=== PATIENT | female | born 1995 | race Caucasian/White ===

== ENCOUNTER 2018-01-19 15:38 | Emergency (ER) | payer OTHER ==
[~2018-01-19] VITALS: Ht 160 cm; Wt 59.1 kg
[2018-01-19] MEDS ORDERED: ChlordiazePOXIDE HCL 25 MG CAPSULE PO ONE (16:45)
[2018-01-19 17:01] LABS: AMPHET/METH SCREEN,URINE NEGATIVE (NEGATIVE); BARBITURATE SCREEN, URINE NEGATIVE (NEGATIVE); BENZODIAZEPINES SCREEN,URINE POSITIVE (NEGATIVE); CANNABINOID SCREEN,URINE NEGATIVE (NEGATIVE); COCAINE SCREEN,URINE NEGATIVE (NEGATIVE); METHADONE SCREEN, URINE NEGATIVE (NEGATIVE); OPIATE SCREEN,URINE NEGATIVE (NEGATIVE); PHENCYCLIDINE SCREEN,URINE NEGATIVE (NEGATIVE)
[2018-01-19 18:13] VITALS: BP 116/71
== END 2018-01-19 18:14 | disposition home or self-care (01) ==
LOC: EMS 15:42
DX: F10.239 Alcohol dependence with withdrawal, unspecified (principal)
CPT/HCPCS: 99283

== ENCOUNTER 2021-08-08 15:01 | Emergency (ER) | payer OTHER ==
[~2021-08-08] VITALS: Ht 160 cm; Wt 59.1 kg
[2021-08-08 15:07] VITALS: BP 103/68
[2021-08-08 16:12] LABS: COVID AG,FIA SOURCE NASOPHARYNGEAL
== END 2021-08-08 18:00 | disposition home or self-care (01) ==
LOC: EMS 15:05
DX: J06.9 Acute upper respiratory infection, unspecified (principal); F17.210 Nicotine dependence, cigarettes, uncomplicated; Z20.822 Contact with and (suspected) exposure to COVID-19
CPT/HCPCS: 87426; 99283; U0003

== ENCOUNTER 2021-10-10 17:14 | Emergency (ER) | payer OTHER ==
[~2021-10-10] VITALS: Ht 160 cm; Wt 61.4 kg
[2021-10-10 18:07] VITALS: BP 113/66
[2021-10-10 18:42] LABS: COVID AG,FIA SOURCE NASOPHARYNGEAL
[2021-10-10 19:31] LABS: INFLUENZA TYPE A NEGATIVE FOR TYPE A (NEGATIVE); INFLUENZA TYPE B NEGATIVE FOR TYPE B (NEGATIVE)
== END 2021-10-10 20:14 | disposition home or self-care (01) ==
LOC: EMS 17:50
DX: J06.9 Acute upper respiratory infection, unspecified (principal); Z20.822 Contact with and (suspected) exposure to COVID-19
CPT/HCPCS: 87804; 99283

== ENCOUNTER 2022-11-19 18:23 | Emergency (ER) | payer OTHER ==
[~2022-11-19] VITALS: Ht 160 cm; Wt 70.5 kg
[2022-11-19 19:58] LABS: BASOPHILS % (AUTO) 0.6 % (0.0-2.0); EOSINOPHILS % (AUTO) 0.3 % (1.0-6.0); HEMATOCRIT 38.7 % (36-46); HEMOGLOBIN 12.9 g/dL (12.0-16.0); LYMPHOCYTES # (AUTO) 1.7 K/uL (1.0-4.8); LYMPHOCYTES % (AUTO) 30.8 % (22.0-44.0); MEAN CORPUSCULAR HEMOGLOBIN 29.8 pg (26.0-34.0); MEAN CORPUSCULAR HGB CONC 33.3 G/dL (31.0-37.0); MEAN CORPUSCULAR VOLUME 90 fL (80-100); MONOCYTES # (AUTO) 0.3 K/uL (0.1-1.0); MONOCYTES % (AUTO) 5.7 % (2.0-9.0); NEUTROPHILS # (AUTO) 3.5 K/uL (1.8-7.7); NEUTROPHILS % (AUTO) 62.6 % (40.0-70.0); PLATELET COUNT (AUTO) 433 K/uL (150-450); RED BLOOD CELL COUNT(AUTO) 4.31 MIL/uL (4.00-5.20); RED CELL DISTRIBUTION WIDTH 15.4 % (11.5-14.5)
[2022-11-19 20:12] LABS: ANION GAP 13 mmol/L (8-16); CALCIUM, TOTAL 8.5 mg/dL (8.8-10.5); CARBON DIOXIDE 25 mmol/L (22-29); CHLORIDE 108 mmol/L (98-107); CREATININE 0.61 mg/dL (0.60-1.30); GLOMERULAR FILTR. RATE CALC > 60 mL/min (>60); GLUCOSE,RANDOM 96 mg/dL (70-110); POTASSIUM 4.1 mmol/L (3.5-5.1); SODIUM SERUM 146 mmol/L (136-145); UREA NITROGEN, BLOOD 13 mg/dL (7-18)
[2022-11-19] MEDS ORDERED: DiphenhydrAMINE HCL 50 MG/ML VIAL IM ONE (20:15)
[2022-11-19] MEDS ORDERED: HALOPERIDOL LACTATE 5 MG/ML VIAL IM ONE (20:15)
[2022-11-19] MEDS ORDERED: LORazepam 2 MG/ML VIAL IM ONE (20:15)
[2022-11-19 20:18] LABS: ALANINE AMINOTRANSFERASE 24 U/L (12-78); ALKALINE PHOSPHATASE 72 U/L (46-116); ASPARTATE AMINOTRANSFERASE 25 U/L (15-37); BILIRUBIN,TOTAL 0.1 mg/dL (0.1-1.0); TOTAL PROTEIN, SERUM 7.7 g/dL (6.4-8.2)
[2022-11-19 20:21] LABS: COVID AG,FIA SOURCE NASAL SWAB
[2022-11-19 20:46] LABS: AMPHET/METH SCREEN,URINE NEGATIVE (NEGATIVE); BARBITURATE SCREEN, URINE NEGATIVE (NEGATIVE); BENZODIAZEPINES SCREEN,URINE NEGATIVE (NEGATIVE); CANNABINOID SCREEN,URINE NEGATIVE (NEGATIVE); COCAINE SCREEN,URINE NEGATIVE (NEGATIVE); METHADONE SCREEN, URINE NEGATIVE (NEGATIVE); OPIATE SCREEN,URINE NEGATIVE (NEGATIVE); PHENCYCLIDINE SCREEN,URINE NEGATIVE (NEGATIVE)
[2022-11-20 09:15] VITALS: BP 128/74
== END 2022-11-20 09:37 | disposition home or self-care (01) ==
LOC: EMS 18:25
DX: F69 Unspecified disorder of adult personality and behavior (principal); F10.129 Alcohol abuse with intoxication, unspecified; F17.210 Nicotine dependence, cigarettes, uncomplicated; Z20.822 Contact with and (suspected) exposure to COVID-19; Y90.9 Presence of alcohol in blood, level not specified
CPT/HCPCS: 99291; 87426; 80053; 84703; 85025; 36415; 96372; 80307 ×2; G0480